=== PATIENT | female | born 1990 ===

== ENCOUNTER 2019-11-30 10:09 | Inpatient (IN) | payer BC ==
[~2019-11-30 10:09] MED LIST: Bupivacaine/Epinephrine 0.25% 30 ML VIAL ONE
[2019-11-30] MEDS ORDERED: NS / Oxytocin 40 units/1000ml 1,000 ML IV PRN (10:41)
[2019-11-30] MEDS ORDERED: Misoprostol 200 MCG TAB PR PRN (10:41)
[2019-11-30] MEDS ORDERED: Lidocaine 1% (PF) 30 ML VIAL SC PRN (10:41)
[2019-11-30] MEDS ORDERED: Methylergonovine 0.2 MG/ML VIAL IM PRN (10:41)
[2019-11-30] MEDS ORDERED: Butorphanol Tartrate 1 MG/ML VIAL SLOW IVP PRN (10:41)
[2019-11-30] MEDS ORDERED: hydrALAZINE 20 MG/ML VIAL SLOW IVP PRN (10:41)
[2019-11-30] MEDS ORDERED: HYDROcodone/Acetaminophen 5/325 mg Tablet PO PRN ×2 (10:41)
[2019-11-30] MEDS ORDERED: Promethazine HCl 25 MG/ML VIAL IM PRN ×2 (10:41→12:53)
[2019-11-30] MEDS ORDERED: Ibuprofen 800 MG TAB PO PRN (10:41)
[2019-11-30] MEDS ORDERED: Ondansetron PF 4 MG/2 ML Vial IVP PRN ×2 (10:41→12:53)
[2019-11-30 10:47] VITALS: BMI 36.1
[2019-11-30 11:26] LABS: Hemoglobin 13.2 g/dL (12.0-16.0); Mean Corpuscular HGB CONC 34.9 g/dL (32.0-36.0); Mean Corpuscular Hemoglobin 31.4 pg (27.0-31.0); Platelet Count 178 thou/uL (130-400); RBC Distribution Width 12.3 % (11.5-14.5); White Blood Cell (WBC) Count 12.1 thou/uL (4.8-10.8)
[2019-11-30 11:39] LABS: ALT (SGPT) 25 U/L (8-55); AST (SGOT) 23 U/L (5-34); Albumin 3.7 g/dL (3.5-5.0); Alkaline Phosphatase 150 U/L (40-110); Anion Gap 15 mmol/L (10-20); BUN (Urea Nitrogen) 8 mg/dL (7.0-18.7); Bilirubin, Total 0.2 mg/dL (0.2-1.2); Calc. Creatinine Clearance 156 mL/min (70-130); Calcium 9.7 mg/dL (7.8-10.44); Carbon Dioxide 18 mmol/L (22-29); Chloride 108 mmol/L (98-107); Estimated GFR-MDRD Greater than 90; Globulin 2.6 g/dL (2.4-3.5); Glucose 81 mg/dL (70-105); Potassium 4.1 mmol/L (3.5-5.1); Protein, Total 6.3 g/dL (6.0-8.3); Sodium 137 mmol/L (136-145)
[2019-11-30 11:58] LABS: Syphilis Antibody Nonreactive (Nonreactive); Syphilis Antibody Index 0.04 S/CO (<1.00 Non-Reactive)
[2019-11-30 12:06] LABS: HBSAg Index 0.17 S/CO (0-0.99); Hep B Surf Ag Non-Reactive S/CO (NonReactive)
[2019-11-30] MEDS ORDERED: Fentanyl 100 MCG/2 ML VIAL ONE (12:19)
[2019-11-30] MEDS ORDERED: Fentanyl 4 mcg/Bup 0.1% Cadd 100 ML ONE ×2 (12:20→19:28)
[2019-11-30] MEDS ORDERED: diphenhydrAMINE 50 MG/ML VIAL IVP PRN (12:53)
[2019-11-30] MEDS ORDERED: Naloxone HCl 0.4 mg/ml Vial IVP PRN ×2 (12:53)
[2019-11-30] MEDS ORDERED: Acetaminophen 325 MG TAB PO PRN (12:53)
[2019-11-30] MEDS ORDERED: EPHEDRINE 25 MG/5 ML SYRINGE SLOW IVP PRN (12:53)
[2019-11-30] MEDS ORDERED: Lactated Ringer's 500 ML IV PRN (12:53)
[2019-11-30] MEDS ORDERED: Communication Order-Pharmacy FS SCH (13:00)
[2019-11-30] MEDS: Lactated Ringer's 1,000 ML IV PRN ×2 (13:45→20:09)
[2019-11-30] MEDS: Fentanyl 4 mcg/Bupivacaine 0.1% Cassette 100 ML EPIDURAL SCH ×2 (13:46→19:36)
[2019-11-30] MEDS ORDERED: Lidocaine 1% (PF) 30 ML VIAL ONE (19:11)
[2019-11-30] MEDS ORDERED: NS / Oxytocin 40 units/1000ml 1,000 ML ONE (19:11)
--- NOTE | 2019-11-30 21:10 | PDOC.LDHP ---
Labor and Delivery H&P Chief complaint: contractions HPI: at 0500 patient woke up with contractions. After an hour they became regular and much stronger. Current gestational age (weeks): 39 Dating criteria: last menstrual period Grav: 1 Para: 0 Current medications: pre-makayla vitamins Previous surgical history: none Allergies/Adverse Reactions: Allergies Allergy/AdvReac Type Severity Reaction Status Date / Time Penicillins Allergy Verified 11/30/19 10:51 Sulfa (Sulfonamide Allergy Verified 11/30/19 10:51 Antibiotics) Social history: drug use - Physical Exam Vital signs reviewed and normal: yes General: breathing through contractions Heart: RRR Lungs: nonlabored breathing Abdomen: gravid FHT: category 1 (upon arrival.) - Vaginal Exam cm dilated: 4 Effacement: 100% Station: -2 - OB Labs Blood type: A RH: positive Antibody Screen: negative HIV: negative RPR: negative HEPSAg: negative 1 hour GCT: negative GBS: negative Urine drug screen: negative Rubella: immune - Assessment L&D Assessment: term patient in labor - Plan Plan: admit to L&D, anesthesia consult for pain management
--- NOTE | 2019-11-30 23:25 | PDOC.LDPN ---
Labor & Delivery Progress Note - Subjective Subjective: comfortable (with an epidural ) - Objective Abnormal vital signs: Maternal tachycardia General: NAD, resting Uterine fundus: non tender Dilation: 10 Effacement: 100% Station: 1+ FHT: category 2 (Baseline of 155. Mod variability. Occasional late decels. ) - Assessment (1) 39 weeks gestation of Code(s): Z3A.39 - 39 WEEKS GESTATION OF Current Visit: Yes Status : Acute (2) Thick meconium stained amniotic fluid Code(s): P96.83 - MECONIUM STAINING Current Visit: Yes Status: Acute Plan: other -: Pat was completely dilated at 2215. Pushing was initiated. heart rate decelerations after each pushing contraction. Maternal pushing effort is deadened by epidural. Infant tolerates contractions without pushing. Will labor down for 1 hour an continue with pushing efforts in order to decrease time of pushing.
--- NOTE | 2019-12-01 01:10 | PDOC.OPDEL ---
OB Operative/Delivery Note Delivery Dr/Surgeon: Jodie Rodgers Pre-Delivery Diagnosis: active labor Procedure/Post Delivery Dx: spontaneous vaginal delivery Weeks gestation: 39 Anesthesia: epidural - Findings A Sex: female Weight: 3070 lb - 1 min: 6 - 5 min: 9 - Additional Findings/Plan Placenta delivered: spontaneous Repaired Obstetrical Laceration: right labial Estimated blood loss: 350mL Compilations/Other Findings: tachycardia and temp at delivery Maternal tachycardia - tylenol and 2gm Ancef cord gas collected. Post delivery plan: routine recovery
[2019-12-01] MEDS ORDERED: Milk Of Magnesia 30 ML UDCUP PO PRN (01:41)
[2019-12-01] MEDS ORDERED: HYDROcodone/Acetaminophen 5/325 mg Tablet PO PRN ×2 (01:41)
[2019-12-01] MEDS ORDERED: NS / Oxytocin 40 units/1000ml 1,000 ML IV SCH (01:41)
[2019-12-01] MEDS ORDERED: Lanolin Ointment 7 GM TUBE TOP PRN (01:41)
[2019-12-01] MEDS ORDERED: hydrALAZINE 20 MG/ML VIAL SLOW IVP PRN (01:41)
[2019-12-01] MEDS ORDERED: Misoprostol 200 MCG TAB VAG PRN (01:41)
[2019-12-01] MEDS ORDERED: Benzocaine-Menthol 82.5 ML CAN TOP PRN (01:41)
[2019-12-01] MEDS ORDERED: Ondansetron PF 4 MG/2 ML Vial IVP PRN (01:41)
[2019-12-01] MEDS ORDERED: Methylergonovine 0.2 MG/ML VIAL IM PRN (01:41)
[2019-12-01] MEDS ORDERED: Bisacodyl 10 MG SUPP PR PRN (01:41)
[2019-12-01 02:20] LABS: Actual Bicarbonate (HCO3v) 14 mEq/L (22-28); Base Excess -12.3 mEq/L (-2.0 to +3.0)
[2019-12-01 02:24] LABS: pH (Cord, venous) 7.23 (7.32-7.43)
[2019-12-01] MEDS: Ibuprofen 800 MG TAB PO SCH ×3 (04:52→21:50)
[2019-12-01] MEDS ORDERED: Sodium Chloride 0.9% 10 ML ONE (07:33)
[2019-12-01] MEDS: Ferrous Sulfate 325 MG TAB PO SCH ×2 (08:59→15:08)
[2019-12-01] MEDS ORDERED: Adacel (T-DAP) 0.5 ML SYRINGE IM ONE (09:00)
[2019-12-01] MEDS: Prenatal Vitamin 1 TAB PO SCH (09:27)
[2019-12-01] MEDS: Docusate Calcium (SURFAK) 240 MG CAP PO SCH ×2 (09:28→21:48)
[2019-12-02] MEDS: Ibuprofen 800 MG TAB PO SCH (04:40)
[2019-12-02 07:45] VITALS: BP 109/59; TEMP 98.2
--- NOTE | 2019-12-02 08:51 | PDOC.PP ---
Post Progress Note Post Day #: 1 Subjective: doing well, latching and pumping, normal lochia, requests DC home PO intake tolerated: yes Vital Signs (12 hours) Temp Pulse Resp BP Pulse Ox 12/02/19 07:45 98.2 F 81 20 109/59 L 12/02/19 04:43 98.0 F 83 14 131/77 97 12/02/19 00:38 98.6 F 89 14 127/67 97 Weight Weight 185 lb - Physical Examination General: NAD Respiratory: non-labored breathing Neurological: no gross focal deficits Psychiatric: A&Ox3, normal affect Result Diagrams: 11/30/19 11:11 11/30/19 11:11 Additional Labs: Post Labs Blood Type A POSITIVE 11/30/19 11:42 Hep Bs Antigen Non-Reactive S/CO (NonReactive) 11/30/19 11:11 - Assessment/Plan PPD1 doing well, plan for DC today.
[2019-12-02] MEDS: Prenatal Vitamin 1 TAB PO SCH (09:19)
[2019-12-02] MEDS: Docusate Calcium (SURFAK) 240 MG CAP PO SCH (09:19)
[2019-12-02] MEDS: Ferrous Sulfate 325 MG TAB PO SCH (09:19)
--- NOTE | 2019-12-06 01:18 | PQF ---
[employer] Software Engineer [employer] Winform Viewer BARGER, STEPHANSTACIE FROST DO [id number] CLINICAL DOCUMENTATION CLARIFICATION FORM: POST DISCHARGE Addendum to original discharge summary date: not pt pt Late entry note date: __ DATE: 12/06/19 ATTN: Stacie Lozano Please exercise your independent, professional judgment in responding to the clarification form. Clinical indicators are provided on the bottom of this form for your review Can you please further clarify the diagnosis being treated and evaluated? ___ Final Diagnosis on the Pathology report: acute chorioamnionitis Based on the pathological findings of acute chorioamnionitis is this a confirmed diagnosis for this patient? [ ] Yes, this is a secondary diagnosis for this patient [ ] Other (additional comments): [ ] Unable to determine For continuity of documentation, please document condition throughout progress notes and discharge summary. Thank You. CLINICAL INDICATORS - SIGNS/ SYMPTOMS / LABS / RESULTS AND LOCATION IN MR H and P pg.2- Term patient in labor Pathology Report- chorio, tachycardia Pathology Report- Membranes: focal mild acute chorioamnionitis Delivery Summary:Maternal complication- chorioamnionitis RISK FACTORS / RESULTS AND LOCATION IN MR 39 Weeks- H and P pg.1 Thick meconium stained amniotic fluid- Labor and Delivery PN pg.1 Maternal Tachycardia- Labor and Delivery PN pg.1 TREATMENTS / RESULTS AND LOCATION IN MR IV Fluids- MAR IV Cefazolin 2gm- MAR Pathology Report 12/01 (This form is maintained as a part of the permanent medical record) 2014 [employer]. All Rights Reserved [email or web address]
== END 2019-12-02 10:10 | disposition home or self-care (01) | DRG 807 ==
LOC: L&D/OP 10:09 → L&D 10:43 → 3SW 12-01 03:46
PROVIDERS: ADMIT Student in an Organized Health Care Education/Training Program; ATTEND Student in an Organized Health Care Education/Training Program
PROC: 10E0XZZ Delivery of Products of Conception, External Approach (ICD-10-PCS; principal; 2019-11-30)
PROC: 0UQMXZZ Repair Vulva, External Approach (ICD-10-PCS; 2019-11-30)
PROC: 3E0P7VZ Introduction of Hormone into Female Reproductive, Via Natural or Artificial Opening (ICD-10-PCS; 2019-11-30)
PROC: 3E033VJ Introduction of Other Hormone into Peripheral Vein, Percutaneous Approach (ICD-10-PCS; 2019-11-30)
DX: O77.0 Labor and delivery complicated by meconium in amniotic fluid (principal); Z37.0 Single live birth; O76 Abnormality in fetal heart rate and rhythm complicating labor and delivery; Z3A.39 39 weeks gestation of pregnancy; R00.0 Tachycardia, unspecified; O75.89 Other specified complications of labor and delivery; O70.0 First degree perineal laceration during delivery; Z88.2 Allergy status to sulfonamides; Z88.0 Allergy status to penicillin
CPT/HCPCS: 36415; 51702; 80053; 82805; 85027; 86780; 86850; 86900; 86901; 87340; 88307; 99285; J0690; J2001; J2405; J3010